=== PATIENT | male | born 1990 | race Caucasian/White ===

== ENCOUNTER 2016-05-02 23:47 | Emergency (ER) | payer SELFPAY ==
[2016-05-03 00:20] LABS: HEMOGLOBIN 15.8 gm/dl (14.0-17.5); RED BLOOD COUNT 5.18 M/UL (4.20-5.50); WHITE BLOOD COUNT 16.7 K/UL (4.5-11.0)
[2016-05-03 00:50] LABS: BUN/CREATININE RATIO 17 (0-10)
== END 2016-05-03 05:38 | disposition home or self-care (01) ==
LOC: ER1 23:47
PROVIDERS: Family Medicine
DX: I30.1 Infective pericarditis (principal); I30.9 Acute pericarditis, unspecified
CPT/HCPCS: 36415; 71020; 80053; 82550; 82553; 83874; 84484; 85025; 85379; 86140; 93005; 99285

== ENCOUNTER → 2016-05-06 | Outpatient (CLI) | payer SELFPAY | LOC: ECHO 13:00 → HEART 5 05-13 10:00 | DX: I30.9 Acute pericarditis, unspecified (principal); R07.9 Chest pain, unspecified | CPT/HCPCS: ECHO; 93306 ==